=== PATIENT | female | born 1975 | race Caucasian/White ===

== ENCOUNTER 2019-06-18 23:29 | Emergency (ER) | payer MEDICAID ==
[2019-06-19] MEDS: HYDROCODONE/APAP (5/325) TAB PO (00:21)
[2019-06-19 01:19] LABS: TROPONIN-I < 0.012 ng/ml (0.000-0.120)
== END 2019-06-19 01:52 | disposition home or self-care (01) ==
LOC: E/R 23:29
DX: N64.4 Mastodynia (principal)
CPT/HCPCS: 36415; 71045; 81025; 84484; 93005; 99285-25